=== PATIENT | female | born 1960 | race Caucasian/White ===

== ENCOUNTER → 2016-12-18 | Outpatient (CLI) | payer BC ==
--- NOTE | 2016-12-21 13:21 | MM ---
Reason for exam: screening (asymptomatic). Last mammogram was performed 1 year and 2 months ago. History: Took hormonal contraceptives for 12 years. Physical Findings: A clinical breast exam by your physician is recommended on an annual basis and results should be correlated with mammographic findings. MG Screening Mammo w CAD Bilateral CC and MLO view(s) were taken. Prior study comparison: November 02, 2015, bilateral MG screening mammo w CAD. September 01, 2014, bilateral MG screening mammo w CAD. July 02, 2013, bilateral digital screening mammo w/CAD. The breast tissue is heterogeneously dense. This may lower the sensitivity of mammography. No significant changes when compared with prior studies. ASSESSMENT: Negative, BI-RAD 1 RECOMMENDATION: Routine screening mammogram of both breasts in 1 year.
== END | disposition home or self-care (01) ==
LOC: RADMAMWWP 15:50
PROVIDERS: ATTEND Obstetrics & Gynecology
DX: Z12.31 Encounter for screening mammogram for malignant neoplasm of breast (principal)

== ENCOUNTER → 2018-03-26 | Outpatient (CLI) | payer BC | END | disposition home or self-care (01) | LOC: LABWHC1 08:46 | PROVIDERS: ATTEND Obstetrics & Gynecology | DX: Z78.0 Asymptomatic menopausal state (principal) | CPT/HCPCS: 36415; 82947 ==

== ENCOUNTER → 2018-04-02 | Outpatient (CLI) | payer BC ==
--- NOTE | 2018-04-03 14:59 | MM ---
Reason for exam: screening (asymptomatic). Last mammogram was performed 1 year and 3 months ago. History: Took hormonal contraceptives for 12 years. Physical Findings: A clinical breast exam by your physician is recommended on an annual basis and results should be correlated with mammographic findings. MG Screening Mammo w CAD Bilateral CC and MLO view(s) were taken. Prior study comparison: December 18, 2016, bilateral MG screening mammo w CAD. November 02, 2015, bilateral MG screening mammo w CAD. The breast tissue is heterogeneously dense. This may lower the sensitivity of mammography. No significant changes when compared with prior studies. ASSESSMENT: Benign, BI-RAD 2 RECOMMENDATION: Routine screening mammogram of both breasts in 1 year.
== END | disposition home or self-care (01) ==
LOC: RADMAMWWP 12:43
PROVIDERS: ATTEND Obstetrics & Gynecology
DX: Z12.31 Encounter for screening mammogram for malignant neoplasm of breast (principal)
CPT/HCPCS: 77067

== ENCOUNTER → 2019-09-15 | Outpatient (CLI) | payer BC ==
--- NOTE | 2019-09-16 11:22 | MM ---
Reason for exam: screening (asymptomatic). Last mammogram was performed 1 year and 5 months ago. History: Patient is postmenopausal. Took hormonal contraceptives for 12 years. Physical Findings: A clinical breast exam by your physician is recommended on an annual basis and results should be correlated with mammographic findings. MG Screening Mammo w CAD Bilateral CC and MLO view(s) were taken. Prior study comparison: April 02, 2018, bilateral MG screening mammo w CAD. December 18, 2016, bilateral MG screening mammo w CAD. The breast tissue is heterogeneously dense. This may lower the sensitivity of mammography. There is no discrete abnormality. No significant changes when compared with prior studies. ASSESSMENT: Negative, BI-RAD 1 RECOMMENDATION: Routine screening mammogram of both breasts in 1 year.
== END | disposition home or self-care (01) ==
LOC: RADMAMWWP 13:14
PROVIDERS: ATTEND Family Medicine
DX: Z12.31 Encounter for screening mammogram for malignant neoplasm of breast (principal)
CPT/HCPCS: 77067

== ENCOUNTER → 2020-05-16 | Outpatient (CLI) | payer BC ==
--- NOTE | 2020-05-16 12:54 | XR ---
EXAMINATION TYPE: XR chest 2V DATE OF EXAM: 05/16/2020 COMPARISON: NONE HISTORY: Shortness of breath TECHNIQUE: Frontal and lateral views of the chest are obtained. FINDINGS: Scattered senescent parenchymal changes noted. Hyperinflation compatible with COPD. No evidence for infiltrate. No evidence for atelectasis. Heart size is stable. Mediastinal structures are stable and grossly unremarkable. No evidence for hilar prominence. Degenerative changes dorsal spine. Pectus excavatum deformity is noted of the sternum. IMPRESSION: 1. No evidence for acute pulmonary disease.
== END | disposition home or self-care (01) ==
LOC: RADXRMAIN 12:37
PROVIDERS: ATTEND Nurse Practitioner
DX: R05 Cough (principal)
CPT/HCPCS: 71046

== ENCOUNTER → 2021-04-07 | Outpatient (CLI) | payer BC, OTHER ==
--- NOTE | 2021-04-10 09:36 | MM ---
Reason for exam: screening (asymptomatic). Last mammogram was performed 1 year and 7 months ago. History: Patient is postmenopausal. Took hormonal contraceptives for 12 years. Physical Findings: A clinical breast exam by your physician is recommended on an annual basis and results should be correlated with mammographic findings. MG Screening Mammo w CAD Bilateral CC and MLO view(s) were taken. Prior study comparison: September 15, 2019, bilateral MG screening mammo w CAD. April 02, 2018, bilateral MG screening mammo w CAD. The breast tissue is heterogeneously dense. This may lower the sensitivity of mammography. There is no discrete abnormality. No significant changes when compared with prior studies. ASSESSMENT: Negative, BI-RAD 1 RECOMMENDATION: Routine screening mammogram of both breasts in 1 year.
== END | disposition home or self-care (01) ==
LOC: RADMAMWWP 14:37
PROVIDERS: ATTEND Family Medicine
DX: Z12.31 Encounter for screening mammogram for malignant neoplasm of breast (principal); Z78.0 Asymptomatic menopausal state; Z79.3 Long term (current) use of hormonal contraceptives
CPT/HCPCS: 77067

== ENCOUNTER 2021-05-17 08:24 | Day surgery (SDC) | payer BC, OTHER ==
[2021-05-12 15:19] VITALS: BMI 20.9
[~2021-05-17 08:24] MED LIST: LACTATED RINGERS 1,000 ML IV SCH; LIDOCAINE 1% (10MG/ML) FOR IV START INTRADERMA PRN
[2021-05-17 08:54] VITALS: RESP 16; TEMP 97.8
[2021-05-17] MEDS ORDERED: PROPOFOL 10 MG/ML 20 ML VIAL IV ONE (09:22)
--- NOTE | 2021-05-17 09:44 | P.PCN ---
Date of Procedure: 05/17/21 Procedure(s) Performed: BRIEF HISTORY: Patient is a 61-year-old pleasant white female scheduled for an elective colonoscopy as a part of screening for colorectal neoplasia and family history of colon cancer. Her mother was diagnosed with colon cancer at age 73. PROCEDURE PERFORMED: Colonoscopy with snare polypectomy. PREOPERATIVE DIAGNOSIS: Screening for colon cancer and family history of colon cancer. IV sedation per Anesthesia. PROCEDURE: After informed consent was obtained, the patient, was brought into the endoscopy unit. IV sedation was administered by Anesthesia under continuous monitoring. Digital rectal examination was normal. Initially the Olympus CF-160 flexible video colonoscope was then inserted in the rectum, gradually advanced into the cecum without any difficulty. Careful examination was performed as the scope was gradually being withdrawn. Ileocecal valve and the appendiceal orifice were visualized and appeared normal. Prep was excellent. On the ileocecal valve there was a 6-7 mm sessile polyp removed by snare polypectomy. Mucosa of the cecum, ascending colon, transverse colon, descending colon, sigmoid colon, and rectum appeared normal. Retroflexion was performed in the rectum and no lesions were seen. The patient tolerated the procedure well. IMPRESSION: 6-7 mm polyp on the ileocecal valve status post polypectomy Rest of the colon appeared normal RECOMMENDATIONS: Findings of this examination were discussed with the patient as well as a family. She was advised to follow with the biopsy results and have a repeat screening colonoscopy every 5 years because of the family history of colon cancer..
[2021-05-17 10:03] VITALS: BP 111/69; PULSE 73
== END 2021-05-17 10:17 | disposition home or self-care (01) ==
LOC: ORWHC2ENDO 08:24
PROVIDERS: ATTEND Internal Medicine Gastroenterology
DX: Z12.11 Encounter for screening for malignant neoplasm of colon (principal); K63.5 Polyp of colon; Z80.0 Family history of malignant neoplasm of digestive organs
CPT/HCPCS: 88305; 45385; J2704

== ENCOUNTER → 2021-10-10 | Outpatient (CLI) | payer OTHER ==
[2021-10-10 14:58] VITALS: BP 126/76; PULSE 63; RESP 17; TEMP 98
--- NOTE | 2021-10-10 15:44 | P.HPOB ---
History of Present Illness H&P Date: 10/10/21 Chief Complaint: The patient is here for her routine gynecologic exam. This is a 69-year-old with an LMP of 2013. The patient is here to establish with this office. Her last pelvic exam was about 2 years ago. She is without gynecologic complaints and denies any postmenopausal bleeding. Review of Systems The patient's weight has been stable over the last year. She denies respiratory, cardiac, or G.I. problems. 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 - Past Family History Father Family Medical History: Cancer Additional Family Medical History / Comment(s): LYMPHOMA AND COLON CANCER Mother Family Medical History: No Reported History Medications and Allergies Home Medications Medication Instructions Recorded Confirmed Type Calcium Carb/Mag Ox/Zinc Sulf 1 capsule PO DAILY 10/10/21 10/10/21 History [Ret-Ihc-Rdyj 334-134-5 mg Tab] Cholecalciferol [Vitamin D3 (25 2,000 mcg PO DAILY 10/10/21 10/10/21 History Mcg = 1000 Iu)] Multivitamin [Multivitamins Adult 1 capsule PO DAILY 10/10/21 10/10/21 History Gummies] Allergies Allergy/AdvReac Type Severity Reaction Status Date / Time cefpodoxime proxetil Allergy Rash/Hives Verified 10/10/21 14:38 [From Vantin] Exam Vital Signs Temp Pulse Resp BP Pulse Ox 10/10/21 14:55 98 F 63 17 126/76 98 Intake and Output 10/10/21 10/10/21 10/10/21 06:59 14:59 22:59 Other: Weight 61.235 kg Height 5 feet 7 inches, weight 135 pounds, BMI 21.1. This is a well-developed well-nourished white female who is alert and oriented times 3 in no acute distress. HEENT: Within normal limits. NECK: Supple without mass or thyromegaly. CHEST AND LUNGS: Clear to auscultation. HEART: Regular rate and rhythm. BREASTS: Are without mass or discharge. AXILLARY EXAM: Negative for adenopathy. BACK: Negative for CVA tenderness. ABDOMEN: Soft, nontender, without palpable masses. PELVIC EXAM: Normal external genitalia with mild atrophy. Cervix and vagina appear normal with mild atrophy. There is no unusual discharge. There is no evidence of prolapse. The uterus is slightly retroverted, nongravid size and nontender. There are no palpable adnexal masses or tenderness. RECTAL EXAM: Rectovaginal exam is negative for mass or tenderness and is negative for occult blood. EXTREMITIES: Nontender. IMPRESSION: 1. 61-year-old menopausal female with normal gynecologic exam. PLAN: 1. Pap smear cotest was performed. 2. Self breast awareness was discussed with the patient. We have also discussed symptoms associated with inflammatory breast cancer. 3. Screening mammogram will be due in March 2022. The order slip was given to the patient for this. 4. Osteoporosis prevention was discussed. I have stressed the importance of adequate calcium, vitamin D and regular exercise. Recommended amounts of calcium and vitamin D were also discussed. 5. She did not receive a Covid vaccination. She did have cold it in the past. She understands the CDC recommends Covid vaccination even after having had Covid. 6. She was advised to return in one year for her annual well woman exam.
== END ==
LOC: WWCWWP 14:26
PROVIDERS: ATTEND Obstetrics & Gynecology
DX: Z01.419 Encounter for gynecological examination (general) (routine) without abnormal findings (principal); Z88.1 Allergy status to other antibiotic agents

== ENCOUNTER → 2023-07-23 | Outpatient (CLI) | payer BC ==
[2023-07-23 15:16] VITALS: BP 115/75; PULSE 67; RESP 17; TEMP 98
--- NOTE | 2023-07-23 15:30 | P.HPOB ---
History of Present Illness H&P Date: 07/23/23 Chief Complaint: The patient is here for her routine gynecologic exam and ma mmogram. This is a 63-year-old with an LMP of 2013. The patient is without gynecologic complaints. Review of Systems The patient has lost 3 pounds over the last year. She denies respiratory, cardiac, or G.I. problems. 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 - Past Family History Father Family Medical History: Cancer Additional Family Medical History / Comment(s): LYMPHOMA AND COLON CANCER Mother Family Medical History: No Reported History Medications and Allergies Home Medications Medication Instructions Recorded Confirmed Type Calcium Carb/Mag Ox/Zinc Sulf 1 capsule PO DAILY 10/10/21 07/23/23 History [Hly-Pxx-Ndfz 334-134-5 mg Tab] Cholecalciferol [Vitamin D3 (25 2,000 mcg PO DAILY 10/10/21 07/23/23 History Mcg = 1000 Iu)] Multivitamin [Multivitamins Adult 1 capsule PO DAILY 10/10/21 07/23/23 History Gummies] Allergies Allergy/AdvReac Type Severity Reaction Status Date / Time cefpodoxime proxetil Allergy Rash/Hives Verified 07/23/23 14:46 [From Vantin] Exam Vital Signs Temp Pulse Resp BP Pulse Ox 07/23/23 14:47 98.0 F 67 17 115/75 100 Intake and Output 07/23/23 07/23/23 07/23/23 06:59 14:59 22:59 Other: Weight 59.874 kg Height 5 feet 6 inches, weight 132 pounds, BMI 21.3. This is a well-developed well-nourished white female who is alert and oriented times 3 in no acute distress. HEENT: Within normal limits. NECK: Supple without mass or thyromegaly. CHEST AND LUNGS: Clear to auscultation. HEART: Regular rate and rhythm. BREASTS: Are without mass or discharge. AXILLARY EXAM: Negative for adenopathy. BACK: Negative for CVA tenderness. ABDOMEN: Soft, nontender, without palpable masses. PELVIC EXAM: Normal external genitalia with mild atrophy. Cervix and vagina appear normal mild atrophy. There is no unusual discharge. There is a grade 2 cystocele with Valsalva and a grade 2 rectocele at rest. The uterus is midposition, nongravid size and nontender. There are no palpable adnexal masses or tenderness. RECTAL EXAM: Rectovaginal exam is negative for mass or tenderness and is negative for occult blood. The rectal exam does confirm a small rectocele. EXTREMITIES: Nontender. IMPRESSION: 1. 63-year-old menopausal female with asymptomatic grade 2 cystocele and grade 2 rectocele. PLAN: 1. Pap smear was deferred since she had a negative Pap smear, test on 10/10/2021. 2. Self breast awareness was discussed with the patient. We have also discussed symptoms associated with inflammatory breast cancer. 3. Screening mammogram will be done today. 4. Osteoporosis prevention was discussed. I have stressed the importance of adequate calcium, vitamin D and regular exercise. Recommended amounts of calcium and vitamin D were also discussed. I recommended a bone density test since it has been many years since her last bone density test. The order slip was given to the patient for this. 5. The small cystocele and small rectocele do not seem to be causing her any problems. We will proceed with conservative management at this time. I have stressed the importance of not holding urine or stool longer than necessary. She will call if problems. 6. She was advised to return in one year for her annual well woman exam.
--- NOTE | 2023-07-24 16:10 | MM ---
Reason for Exam: Screening (asymptomatic). Last mammogram was performed 2 year(s) and 4 month(s) ago. Patient History: Menarche at age 13. First Full-Term at age 25. Postmenopausal. Patient used Hormonal Contraceptives for 12 years. Risk Values: Sandra 5 year model risk: 1.4%. NCI Lifetime model risk: 6.2%. Prior Study Comparison: 04/02/2018 Bilateral Screening Mammogram, [facility]. 09/15/2019 Bilateral Screening Mammogram, [facility]. 04/07/2021 Bilateral Screening Mammogram, [facility]. Tissue Density: The breast tissue is heterogeneously dense. This may lower the sensitivity of mammography. Findings: Analyzed By CAD. Pattern appears symmetrical. No significant interval change is evident No suspicious groups of microcalcifications, spiculated or lobular masses, architectural distortion or other secondary signs of malignancy are mammographically apparent. Overall Assessment: Benign, BI-RAD 2 Management: Screening Mammogram of both breasts in 1 year. A negative mammogram report should not preclude additional follow up of suspicious palpable abnormalities. Patient should continue monthly self breast exam. A clinical breast exam by your physician is recommended on an annual basis and results should be correlated with mammographic findings. Electronically signed and approved by: Moncho Pedersen D.O. Radiologis
== END ==
LOC: WWCWWP 14:42
PROVIDERS: ATTEND Obstetrics & Gynecology
DX: Z12.31 Encounter for screening mammogram for malignant neoplasm of breast (principal); N81.10 Cystocele, unspecified; N81.6 Rectocele; Z78.0 Asymptomatic menopausal state; Z88.1 Allergy status to other antibiotic agents
CPT/HCPCS: 77063; 77067

== ENCOUNTER → 2024-06-10 | Outpatient (CLI) | payer BC ==
--- NOTE | 2024-06-11 17:02 | BD ---
EXAMINATION TYPE: Axial Bone Density DATE OF EXAM: 06/10/2024 CLINICAL HISTORY: 64 years old Female. ICD-10 CODE: Z78.0 Postmenopausal , Z78.0 Height: 66.5 Weight: 133.3 FRAX RISK QUESTIONS: Alcohol (3 or more units per day): no Family History (Parent hip fracture): no Glucocorticoids (More than 3mos): no (Ex: prednisone, prednisolone, methylprednisolone, dexamethasone, and hydrocortisone). History of Fracture in Adulthood: clavicle Secondary Osteoporosis: 1. Type 1 Diabetes: no 2. Hyperthyroidism: no 3. Menopause before 45: no 4. Malnutrition: no 5. Chronic liver disease: no Rheumatoid Arthritis: no Current Tobacco Use: no RISK FACTORS HISTORY OF: Hip Fracture (Right/Left): no Spine Fracture: no History of Wrist Fracture: no Surgery to Spine/Hip(right/left)/Wrist (right/left): no MEDICATIONS: Thyroid Medications: no Osteoporosis Medications: no EXAM MEASUREMENTS: Bone mineral densitometry was performed using the Ze[employer] System. Bone mineral density as measured about the Lumbar spine is: ----- L1-L4(G/cm2): 0.990 T Score Values are as follows: ----- L1: -2.0 ----- L2: -1.8 ----- L3: -1.5 ----- L4: -1.3 ----- L1-L4: -1.6 Z Score Values are as follows: ----- L1: -0.4 ----- L2: -0.2 ----- L3: 0.1 ----- L4: 0.3 ----- L1-L4: 0.0 BASELINE STUDY Bone mineral density about the R hip (g/cm2): 0.777 Bone mineral density about the L hip (g/cm2): 0.719 T Score values are as follows: -----R Neck: -2.1 -----L Neck: -2.6 -----R Total: -1.8 -----L Total: -2.3 Z Score values are as follows: -----R Neck: -0.6 -----L Neck: -1.2 -----R Total: -0.6 -----L Total: -1.1 BASELINE STUDY FRAX%s: The graph provided illustrates a 20.4% chance for a major osteoporotic fx and a 5.0% chance f or the hips probability for fx in 10 years time. IMPRESSION: Osteoporosis (T Score less than -2.5). There is increased fracture risk and therapy is usually indicated based on age. Re-Screen 1-2 years. NOTE: T-SCORE=SD OF THE YOUNG ADULT MEAN. [facility], , 06/11/2024 4:59 PM
== END | disposition home or self-care (01) ==
LOC: RADBDWWP 16:20
PROVIDERS: ATTEND Obstetrics & Gynecology
DX: M81.0 Age-related osteoporosis without current pathological fracture (principal); Z78.0 Asymptomatic menopausal state
CPT/HCPCS: 77080

== ENCOUNTER → 2024-10-06 | Outpatient (CLI) | payer BC ==
--- NOTE | 2024-10-06 09:11 | XR ---
EXAMINATION TYPE: XR KUB DATE OF EXAM: 10/06/2024 9:05 AM CLINICAL HISTORY: Calculus of ureter TECHNIQUE: Single supine KUB image of the abdomen obtained. COMPARISON: CT abdomen and pelvis 9 days earlier. FINDINGS: There is 5 mm calculus in the right kidney L2-L3 disc space level redemonstrated. No left-s ided nephrolithiasis. Multiple small calcified gallstones are again seen. A few small calcified pelvi c phleboliths are redemonstrated. Overall nonobstructive bowel gas pattern. Visualized osseous structures are intact. IMPRESSION: As above. [facility], , 10/06/2024 9:08 AM
== END | disposition home or self-care (01) ==
LOC: RADXRMAIN 08:37
PROVIDERS: ATTEND Urology
DX: N20.2 Calculus of kidney with calculus of ureter (principal); K80.20 Calculus of gallbladder without cholecystitis without obstruction; I87.8 Other specified disorders of veins
CPT/HCPCS: 74018

== ENCOUNTER → 2024-10-13 | Outpatient (CLI) | payer BC ==
[2024-10-13 16:24] VITALS: BP 126/81; PULSE 65; RESP 16; TEMP 97.8
--- NOTE | 2024-10-13 17:17 | P.HPOB ---
History of Present Illness H&P Date: 10/13/24 Chief Complaint: The patient is here for her routine gynecologic exam and ma mmogram. This is a 64-year-old with an LMP of 2013. Patient is without gynecologic complaints and denies any postmenopausal bleeding. Review of Systems The patient has gained 6 pounds over the last year. She denies respiratory, cardiac, or G.I. problems. Past Medical History Past Medical History: No Reported History Additional Past Medical History / Comment(s): Osteoporosis. Kidney stone 2024. 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 Grade 2 cystocele and grade 1 rectocele. 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 - Past Family History Father Family Medical History: Cancer Additional Family Medical History / Comment(s): LYMPHOMA AND COLON CANCER Mother Family Medical History: No Reported History Medications and Allergies Home Medications Medication Instructions Recorded Confirmed Type Cholecalciferol [Vitamin D3 (25 2,000 mcg PO DAILY 10/10/21 10/13/24 History Mcg = 1000 Iu)] Multivitamin [Multivitamins Adult 1 capsule PO DAILY 10/10/21 10/13/24 History Gummies] Tamsulosin [Flomax] 0.4 mg PO DAILY 10 Days #10 cap 09/27/24 10/13/24 Rx Allergies Allergy/AdvReac Type Severity Reaction Status Date / Time cefpodoxime proxetil Allergy Rash/Hives Verified 10/13/24 16:15 [From Stacy] Exam Vital Signs Temp Pulse Resp BP Pulse Ox 10/13/24 16:16 97.8 F 65 16 126/81 99 Intake and Output 10/13/24 10/13/24 10/13/24 06:59 14:59 22:59 Other: Weight 62.596 kg Height 5 feet 6 inches, weight 138 pounds, BMI 22.3. This is a well-developed well-nourished white female who is alert and oriented times 3 in no acute distress. HEENT: Within normal limits. NECK: Supple without mass or thyromegaly. CHEST AND LUNGS: Clear to auscultation. HEART: Regular rate and rhythm. BREASTS: Are without mass or discharge. AXILLARY EXAM: Negative for adenopathy. BACK: Negative for CVA tenderness. ABDOMEN: Soft, nontender, without palpable masses. PELVIC EXAM: Normal external genitalia with mild atrophy. Cervix and vagina appear normal with mild atrophy. There is no unusual discharge. There is a grade 2 cystocele and grade 1 rectocele. The uterus is midposition, nongravid size and nontender. There are no palpable adnexal masses or tenderness. RECTAL EXAM: Rectovaginal exam is negative for mass or tenderness and is negative for occult blood. EXTREMITIES: Nontender. IMPRESSION: 1. 64-year-old menopausal female with stable asymptomatic grade 2 cystocele and grade 1 rectocele. 2. Osteoporosis. The patient is declining medication for this. PLAN: 1. Pap smear was deferred since she had a negative Pap smear cotest on 10/10/2021. 2. Self breast awareness was discussed with the patient. We have also discussed symptoms associated with inflammatory breast cancer. 3. Screening mammogram will be done today. 4. Osteoporosis management was discussed. I have stressed the importance of adequate calcium, vitamin D and regular exercise. Recommended amounts of calcium and vitamin D were also discussed. I again have recommended prescription treatment for the osteoporosis because of her increased risk for bone fracture. She understands the pros and cons with the medication and is declining medication at this time. She understands she is at a greater risk for bone fracture and should avoid falling if at all possible. If she changes her mind about medications for osteoporosis she will call. Plan on repeating the bone density test in about 1 1/2 years. 5. Continue conservative management regarding the cystocele and small rectocele. She is to avoid holding urine and stool longer than necessary. She will call if problems. 6. She was advised to return in one year for her annual well woman exam and as needed.
--- NOTE | 2024-10-14 08:50 | MM ---
Reason for Exam: Screening (asymptomatic). Last mammogram was performed 1 year(s) and 3 month(s) ago. Patient History: Menarche at age 13. First Full-Term at age 25. Postmenopausal. Patient used Hormonal Contraceptives for 12 years. Risk Values: Sandra 5 year model risk: 1.4%. NCI Lifetime model risk: 6.0%. Prior Study Comparison: 09/15/2019 Bilateral Screening Mammogram, [facility]. 04/07/2021 Bilateral Screening Mammogram, [facility]. 07/23/2023 Bilateral MG 3D screening mammo w/cad, [facility]. Tissue Density: There are scattered areas of fibroglandular density. Findings: Analyzed By CAD. There is no suspicious group of microcalcifications or new suspicious mass in either breast. Overall Assessment: Negative, BI-RAD 1 Management: Screening Mammogram of both breasts in 1 year. Patient should continue monthly self-breast exams. A clinical breast exam by your physician is recommended on an annual basis. This exam should not preclude additional follow-up of suspicious palpable abnormalities. Note on Sandra scores and lifetime risk: 1. A Sandra score greater than 3% is considered moderate risk. If this is the case, consider specialist referral to assess eligibility for a risk reducing agent. 2. If overall lifetime risk for the development of breast cancer is 20% or higher, the patient may qualify for future screening with alternating mammogram and breast MRI. [facility], , 10/14/2024 8:47 AM. Electronically signed and approved by: Nando Omalley M.D. Radiologist
== END ==
LOC: WWCWWP 16:06
PROVIDERS: ATTEND Obstetrics & Gynecology
DX: Z12.31 Encounter for screening mammogram for malignant neoplasm of breast (principal); N95.1 Menopausal and female climacteric states; N81.6 Rectocele; N81.10 Cystocele, unspecified; M19.90 Unspecified osteoarthritis, unspecified site; Z88.1 Allergy status to other antibiotic agents
CPT/HCPCS: 77067

== ENCOUNTER → 2024-10-21 | Outpatient (CLI) | payer BC ==
--- NOTE | 2024-10-22 06:19 | XR ---
EXAMINATION TYPE: XR KUB DATE OF EXAM: 10/21/2024 4:55 PM CLINICAL INDICATION: Female, 64 years old with history of N20.1 CALCULUS OF URETER, pain TECHNIQUE: 2 supine views of the abdomen. COMPARISON: Abdominal x-ray October 06, 2024. FINDINGS: Persistent 5-6 mm calculus at the mid to lower pole level of the right kidney projecting castillo perior L3 level. A few scattered small bilateral pelvic phleboliths are redemonstrated. Multiple smal l calcified gallstones are redemonstrated. Overall nonobstructive bowel gas pattern. Osseous structures are intact. IMPRESSION: As above. No significant change from most recent prior. [facility], , 10/22/2024 6:16 AM
== END | disposition home or self-care (01) ==
LOC: RADXRMAIN 16:35
PROVIDERS: ATTEND Urology
DX: N20.2 Calculus of kidney with calculus of ureter (principal)
CPT/HCPCS: 74018

== ENCOUNTER → 2024-11-02 | Outpatient (CLI) | payer BC ==
--- NOTE | 2024-11-02 09:11 | XR ---
EXAMINATION TYPE: XR KUB DATE OF EXAM: 11/02/2024 9:01 AM COMPARISON: 05/01/2015. CLINICAL INDICATION: Female, 64 years old with history of N20.1 CALCULUS OF URETER; [facility] TECHNIQUE: One radiographic view of the abdomen was obtained. FINDINGS: The bowel gas pattern is nonspecific without dilated loops of small or large bowel. . Fecal material and gas are demonstrated throughout the colon and rectum. There is no evidence for organome anika or pneumoperitoneum. No acute osseous process. No abnormal calcifications are present. Right r enal fossa calculi measuring up to 8 mm. Additional gallstones in the gallbladder project over the up per kidney. Pelvic phleboliths present bilaterally similar prior CT. IMPRESSION: 1. Right renal calculi. 2. Cholelithiasis. [facility], , 11/02/2024 9:09 AM
== END | disposition home or self-care (01) ==
LOC: RADXRMAIN 08:53
PROVIDERS: ATTEND Urology
DX: K80.20 Calculus of gallbladder without cholecystitis without obstruction (principal); N20.2 Calculus of kidney with calculus of ureter
CPT/HCPCS: 74018